=== PATIENT | male | born 1985 | race Caucasian/White ===

== ENCOUNTER 2016-06-03 15:25 | Inpatient (IN) | payer OTHER ==
[2016-06-03 16:04] VITALS: BMI 31.7
--- NOTE | 2016-06-03 19:42 | HP ---
COWS - Scale Resting Pulse: 2= MI 101-120 Sweatin= Chills/Flushing Restless Observation: 3= Extraneous Movement Pupil Size: 1= Pupils >than Normal Bone or Joint Aches: 2= Severe Diffuse Aches Runny Nose/ Eye Tearin= Runny Nose/Eyes GI Upset > 30mins: 2= Nausea/Diarrhea Tremor Observation: 2= Slight Tremor Visible Yawning Observation: 0= None Anxiety or Irritability: 2=Irritable/Anxious Goose Flesh Skin: 0=Smooth Skin COWS Score: 17 Admission [facility] Chief Complaint: WITHDRAWAL SX Allergies/Adverse Reactions: Allergies Allergy/AdvReac Type Severity Reaction Status Date / Time No Known Allergies Allergy Verified 06/03/16 19:27 History of Present Illness: 30 YEARS OLD MALE WITH LONG HISTORY OF OPIATE NICOTINE DEPENDENCE HAS ASTHMA AND DEPRESSION IS ADMITTED TO DETOX Exam Limitations: No Limitations - Ebola screening Have you traveled outside of the country in the last 21 days: No Have you had contact with anyone from an Ebola affected area: No Have you been sick,other than usual withdrawal symptoms: No Do you have a fever: No - Review of Systems Constitutional: Chills, Changes in sleep, Weight Stable EENT: reports: No Symptoms Reported Respiratory: reports: No Symptoms reported Cardiac: reports: No Symptoms Reported GI: reports: Nausea, Poor Fluid Intake, Abdominal cramping : reports: No Symptoms Reported Musculoskeletal: reports: Back Pain, Joint Pain, Muscle Pain, Neck Pain Integumentary: reports: Change in Color Neuro: reports: Tremors Endocrine: reports: No Symptoms Reported Hematology: reports: No Symptoms Reported Psychiatric: reports: Judgement Intact, Orientated x3, Depressed Other Systems: Reviewed and Negative Patient History - Patient Medical History Hx Anemia: No Hx Asthma: No Hx Chronic Obstructive Pulmonary Disease (COPD): No Hx Cancer: No Hx Cardiac Disorders: No Hx Congestive Heart Failure: No Hx Hypertension: No Hx Hypercholesterolemia: No Hx Pacemaker: No HX Cerebrovascular Accident: No Hx Seizures: No Hx Dementia: No Hx Diabetes: No Hx Gastrointestinal Disorders: No Hx Liver Disease: No Hx Genitourinary Disorders: No Hx Sexually Transmitted Disorders: No Hx Renal Disease (ESRD): No Hx Thyroid Disease: No Hx Human Immunodeficiency Virus (HIV): No Hx Hepatitis C: No Hx Depression: Yes Hx Suicide Attempt: No Hx Bipolar Disorder: No Hx Schizophrenia: No - Patient Surgical History Past Surgical History: Yes Hx Neurologic Surgery: No Hx Cataract Extraction: No Hx Cardiac Surgery: No Hx Lung Surgery: No Hx Breast Surgery: No Hx Breast Biopsy: No Hx Abdominal Surgery: No Hx Appendectomy: No Hx Cholecystectomy: No Hx Genitourinary Surgery: No Hx Section: No Hx Orthopedic Surgery: No Other Surgical History: HERNIA LEFT 2002 Anesthesia Reaction: No - PPD History Previous Implant?: Yes Documented Results: Negative w/o proof Implanted On Prior R Admission?: No PPD to be Administered?: Yes - Smoking Cessation Smoking history: Current every day smoker Have you smoked in the past 12 months: Yes Aproximately how many cigarettes per day: 20 Cigars Per Day: 0 Hx Chewing Tobacco Use: No Initiated information on smoking cessation: Yes 'Breaking Loose' booklet given: 06/03/16 - Substance & Tx. History Hx Alcohol Use: No Hx Substance Use: Yes Substance Use Type: Cocaine, Opiates Hx Substance Use Treatment: Yes - Substances Abused Heroin Route: Injection Frequency: Daily Amount used: 20 BAGS Age of first use: 28 Date of Last Use: 06/03/16 Family Disease History - Family Disease History Family Disease History: Heart Disease: Father, Mother Admission Physical Exam [facility] - Vital Signs Vital Signs: Vital Signs - 24 hr 06/03/16 16:02 Temperature 98.0 F Pulse Rate 104 H Respiratory 20 Rate Blood Pressure 139/99 - Physical General Appearance: Yes: Appropriately Dressed, Mild Distress, Obese, Tremorous , Irritable, Anxious HEENTM: Yes: Hearing grossly Normal, Normal ENT Inspection, Normocephalic, Normal Voice Respiratory: Yes: Chest Non-Tender, Lungs Clear, Normal Breath Sounds, No Respiratory Distress, No Accessory Muscle Use Neck: Yes: Supple, Trachea in good position Breast: Yes: Breasts Symetrical Cardiology: Yes: Regular Rhythm, S1, S2, Tachycardia Abdominal: Yes: Non Tender, Soft Genitourinary: Yes: Within Normal Limits Back: Yes: Normal Inspection Musculoskeletal: Yes: full range of Motion, Gait Steady, Back pain Extremities: Yes: Normal Range of Motion, Non-Tender, Tremors Neurological: Yes: Fully Oriented, Alert, Motor Strength 5/5, Normal Response, Depressed Affect Integumentary: Yes: Warm, Track Coreas Lymphatic: Yes: Within Normal Limits - Diagnostic (1) Opioid dependence with withdrawal Current Visit: Yes Status: Acute (2) Nicotine dependence Current Visit: Yes Status: Acute Qualifiers: Nicotine product type: cigarettes Substance use status: in withdrawal Qualified Code(s): F17.213 - Nicotine dependence, cigarettes, with withdrawal (3) Asthma Current Visit: Yes Status: Acute Qualifiers: Asthma severity: mild intermittent Asthma complication type: uncomplicated Qualified Code(s): J45.20 - Mild intermittent asthma, uncomplicated (4) Depression (emotion) Current Visit: Yes Status: Suspected Qualifiers: Depression Type: dysthymia Qualified Code(s): F34.1 - Dysthymic disorder Cleared for Admission [facility] - Detox or Rehab [facility] Level of Care: Medically Managed Detox Regimen/Protocol: Methadone [facility] Breath Alcohol Content Breath Alcohol Content: 0 Urine Drug Screen - Results Drug Screen Negative: No Urine Drug Screen Results: SAMARIA-Cocaine, OPI-Opiates, TCA-Tricyclic Antidepress, OXY-Oxycodone
[2016-06-03] MEDS ORDERED: guaiFENesin/D-METHORPHAN HB 10 ML UNIT-DOSE CUPS PO PRN (20:07)
[2016-06-03] MEDS ORDERED: MAGNESIUM CITRATE 300 ML BOTTLE PO PRN (20:07)
[2016-06-03] MEDS ORDERED: MAGNESIUM HYDROX 2400MG/30ML ORAL SUSPENSION 30 ML CUP PO PRN (20:07)
[2016-06-03] MEDS ORDERED: MAG HYDROX/AL HYDROX/SIMETH 30 ML UNIT-DOSE CUP PO PRN (20:07)
[2016-06-03] MEDS ORDERED: LOPERAMIDE HCL 2 MG CAPSULE PO PRN (20:07)
[2016-06-03] MEDS ORDERED: IBUPROFEN 400 MG TABLET (FP) PO PRN (20:07)
[2016-06-03] MEDS ORDERED: METHADONE HCL 10 MG TABLET (FOR DETOX USE ONLY) PO ONE ×2 (20:07→23:00)
[2016-06-03] MEDS ORDERED: MENTHOL/PHENOL 1 EACH UD MM PRN (20:07)
[2016-06-03] MEDS ORDERED: NICOTINE POLACRILEX 4 MG GUM BUC PRN (20:07)
[2016-06-03] MEDS ORDERED: ACETAMINOPHEN 325 MG TABLET (FP) PO PRN (20:07)
[2016-06-03] MEDS ORDERED: P-EPHED 60MG/TRIPROLIDI 2.5MG TABLET PO PRN (20:07)
[2016-06-03] MEDS ORDERED: diphenhydrAMINE HCL 50 MG CAPSULE PO PRN (20:07)
[2016-06-03] MEDS ORDERED: ALBUTEROL SO4 6.7 GM HFA INHALER IH PRN (20:09)
[2016-06-03] MEDS: diazePAM 5 MG TABLET PO PRN (20:59)
[2016-06-03] MEDS ORDERED: THIAMINE HCL 100 MG TABLET (FP) PO SCH (22:00)
[2016-06-04] MEDS ORDERED: METHADONE HCL 10 MG TABLET (FOR DETOX USE ONLY) PO ONE (10:00)
[2016-06-04] MEDS ORDERED: NICOTINE 21 MG/24 HOURS TOPICAL PATCH TD SCH (10:00)
[2016-06-04] MEDS ORDERED: PRENATAL VITAMINS W/ FOLIC ACID TABLET (FP) PO SCH (10:00)
[2016-06-04 10:03] VITALS: BP 128/90; PULSE 89; TEMP 97.1
[2016-06-04] MEDS: diazePAM 5 MG TABLET PO PRN (10:32)
[2016-06-04 10:38] LABS: MCH 29.5 pg (25.7-33.7); MCHC 33.2 g/dl (32.0-35.9); MEAN CELL VOLUME 88.6 fl (80-96); MEAN PLT VOLUME 7.3 fl (7.5-11.1); PLATELET COUNT 233 K/MM3 (134-434); RDW 13.6 % (11.9-15.9); WHITE BLOOD COUNT 11.7 K/mm3 (4.0-10.0)
[2016-06-04 11:17] LABS: ALBUMIN 3.7 g/dl (3.4-5.0); ALK PHOS 83 U/L (45-117); ANION GAP 9 (8-16); BILIRUBIN,TOTAL 0.3 mg/dL (0.2-1.0); CALCIUM 9.2 mg/dL (8.5-10.1); CO2 26 mmol/L (21-32); CREATININE 0.8 mg/dL (0.7-1.3); GLUCOSE,RANDOM 96 mg/dL (74-106); SGOT/AST 14 U/L (15-37); SGPT/ALT 24 U/L (12-78); TOT PROT 7.1 g/dl (6.4-8.2)
--- NOTE | 2016-06-04 12:15 | PN ---
[facility] COWS - Scale Resting Pulse: 1= SD 81-100 Sweatin= Chills/Flushing Restless Observation: 3= Extraneous Movement Pupil Size: 1= Pupils >than Normal Bone or Joint Aches: 2= Severe Diffuse Aches Runny Nose/ Eye Tearin= Runny Nose/Eyes GI Upset > 30mins: 3= Vomiting/Diarrhea Tremor Observation of Outstretched Hands: 2= Slight Tremor Visible Yawning Observation: 1= 1-2x During Session Anxiety or Irritability: 2=Irritable/Anxious Goose Flesh Skin: 0=Smooth Skin COWS Score: 18 S Progress Note (SOAP) Subjective: ALERT,IRRITABLE,ANXIOUS,INTERRUPTED SLEEP,PAIN IN THE BODY AND BACK Objective: 06/04/16 12:12 Vital Signs Temperature 97.1 F L 06/04/16 10:03 Pulse Rate 89 06/04/16 10:03 Respiratory Rate 18 06/04/16 10:03 Blood Pressure 128/90 06/04/16 10:03 O2 Sat by Pulse Oximetry (%) Laboratory Last Values WBC 11.7 K/mm3 (4.0-10.0) H 06/04/16 08:00 RBC 4.97 M/mm3 (4.00-5.60) 06/04/16 08:00 Hgb 14.6 GM/dL (11.7-16.9) 06/04/16 08:00 Hct 44.0 % (35.4-49) 06/04/16 08:00 MCV 88.6 fl (80-96) 06/04/16 08:00 MCHC 33.2 g/dl (32.0-35.9) 06/04/16 08:00 RDW 13.6 % (11.9-15.9) 06/04/16 08:00 Plt Count 233 K/MM3 (134-434) 06/04/16 08:00 MPV 7.3 fl (7.5-11.1) L 06/04/16 08:00 Sodium 143 mmol/L (136-145) 06/04/16 08:00 Potassium 4.0 mmol/L (3.5-5.1) 06/04/16 08:00 Chloride 108 mmol/L (98-107) H 06/04/16 08:00 Carbon Dioxide 26 mmol/L (21-32) 06/04/16 08:00 Anion Gap 9 (8-16) 06/04/16 08:00 BUN 19 mg/dL (7-18) H 06/04/16 08:00 Creatinine 0.8 mg/dL (0.7-1.3) 06/04/16 08:00 Creat Clearance w eGFR > 60 (>60) 06/04/16 08:00 Random Glucose 96 mg/dL (74-106) 06/04/16 08:00 Calcium 9.2 mg/dL (8.5-10.1) 06/04/16 08:00 Total Bilirubin 0.3 mg/dL (0.2-1.0) 06/04/16 08:00 AST 14 U/L (15-37) L 06/04/16 08:00 ALT 24 U/L (12-78) 06/04/16 08:00 Alkaline Phosphatase 83 U/L (45-117) 06/04/16 08:00 Total Protein 7.1 g/dl (6.4-8.2) 06/04/16 08:00 Albumin 3.7 g/dl (3.4-5.0) 06/04/16 08:00 LABS PENDING Assessment: 06/04/16 12:15 WITHDRAWAL SYMPTOM Plan: CONTINUE DETOX,ENCOURAGE ORAL FLUID
[2016-06-04] MEDS ORDERED: cloNIDine HCL 0.1 MG TABLET PO ONE (13:01)
[2016-06-04] MEDS ORDERED: CYCLOBENZAPRINE HCL 10 MG TABLET (FP) PO ONE (13:02)
--- NOTE | 2016-06-04 13:39 | PN ---
S Progress Note Note: PATIENT DID NOT WANT TO COMPLETE TREATMENT,SEEN BY COUNSELOR,SIGNED RELEASE AMA
--- NOTE | 2016-06-04 13:42 | DS ---
[facility] Detox Discharge Summary Admission Date: 06/03/16 Discharge Date: 06/04/16 - History Present History: Cocaine Dependence, Opioid Dependence Additional Comments: PATIENT DID NOT WANT TO COMPLETE TREATMENT,SEEN BY COUNSELOR,SIGNED RELEASE AMA Pertinent Past History: ASTHMA NICOTINE DEPENDENCE DEPRESSION - Physical Exam Results Vital Signs: Vital Signs Temperature 97.1 F L 06/04/16 10:03 Pulse Rate 89 06/04/16 10:03 Respiratory Rate 18 06/04/16 10:03 Blood Pressure 128/90 06/04/16 10:03 O2 Sat by Pulse Oximetry (%) - Medication Discharge Medications: Ambulatory Orders NK [No Known Home Medication] 06/03/16 - AMA Did Patient Leave Against Medical Advice: Yes
--- NOTE | 2016-06-04 18:29 | EKG ---
Test Reason : Blood Pressure : / mmHG Vent. Rate : 060 BPM Atrial Rate : 060 BPM P-R Int : 104 ms QRS Dur : 096 ms QT Int : 394 ms P-R-T Axes : 004 048 027 degrees QTc Int : 394 ms SINUS RHYTHM WITH SINUS ARRHYTHMIA WITH SHORT GA WITH OCCASIONAL PREMATURE VENTRICULAR COMPLEXES NONSPECIFIC ST AND T WAVE ABNORMALITY ABNORMAL ECG NO PREVIOUS ECGS AVAILABLE Confirmed by KEELY BARRERA MD ([id number]) on 06/04/2016 6:28:53 PM Referred By: Confirmed By:KEELY BARRERA MD
[2016-06-04] MEDS ORDERED: CYCLOBENZAPRINE HCL 10 MG TABLET (FP) PO PRN (22:00)
[2016-06-04] MEDS ORDERED: cloNIDine HCL 0.1 MG TABLET PO SCH (22:00)
[2016-06-05] MEDS ORDERED: METHADONE HCL 5 MG TABLET (FOR DETOX USE ONLY) PO ONE (10:00)
[2016-06-06] MEDS ORDERED: METHADONE HCL 5 MG TABLET (FOR DETOX USE ONLY) PO ONE (10:00)
[2016-06-07] MEDS ORDERED: METHADONE HCL 10 MG TABLET (FOR DETOX USE ONLY) PO ONE (10:00)
[2016-06-08] MEDS ORDERED: METHADONE HCL 5 MG TABLET (FOR DETOX USE ONLY) PO ONE (06:00)
== END 2016-06-04 13:35 | disposition left against medical advice (07) | DRG 894 ==
LOC: YASAS 15:25 → Y6N 18:32
PROVIDERS: ADMIT Internal Medicine; ATTEND Internal Medicine
PROC: HZ2ZZZZ Detoxification Services for Substance Abuse Treatment (ICD-10-PCS; principal; 2016-06-04)
DX: F11.23 Opioid dependence with withdrawal (principal); F17.213 Nicotine dependence, cigarettes, with withdrawal; F34.1 Dysthymic disorder; J45.20 Mild intermittent asthma, uncomplicated
CPT/HCPCS: 36415; 80053; 85027; 86593; 93005; 93010